=== PATIENT | male | born 1985 | race Caucasian/White ===

== ENCOUNTER 2022-05-09 06:50 | Emergency (ER) | payer BC, SELFPAY ==
[2022-05-09 07:02] VITALS: BP 131/95; PULSE 89; RESP 20; TEMP 36.5; O2SAT 98; BMI 29.5
[2022-05-09 07:45] LABS: Strep A DNA Probe* NOT DETECTED (Not Detectd)
[2022-05-09 07:57] LABS: PCR FLU A Negative PCR FLU A (Negative); PCR FLU B Negative PCR FLU B (Negative); PCR RSV Negative PCR RSV (Negative)
--- NOTE | 2022-05-09 08:00 | ED_ITS ---
HPI - General Adult General Time Seen by Provider: 08:00 Date Seen: 05/09/22 Chief complaint: Sore Throat Stated complaint: Sore throat Time Seen by Provider: 05/09/22 07:58 Source: patient and RN notes reviewed Mode of arrival: ambulatory Limitations: no limitations History of Present Illness HPI narrative: Patient is a 36-year-old male coming in with complaint of severe sore throat. Symptoms started overnight Wednesday. Patient works night shifts. He has maybe developing a little cough now but really it just severe bilateral sore throat. It is painful enough that he is having difficulty sleeping. Is managing his own secretions. Has had no travel, no definite known ill contacts. He has developed presumed fevers. He has been waking up sweating at night, feels hot at times. Has been taking ibuprofen and [id number] medicines without relief. Related Data Home Medications Medication Instructions Recorded Confirmed omeprazole 20 mg capsule,delayed 20 mg PO DAILY 05/09/22 05/09/22 release Previous Rx's Medication Instructions Recorded azithromycin 250 mg tablet See Rx Instructions PO .COMPLEX #6 05/09/22 tabs tramadol 50 mg tablet 50 mg PO Q6H PRN pain #10 tabs 05/09/22 Allergies Allergy/AdvReac Type Severity Reaction Status Date / Time No Known Drug Allergies Allergy Verified 05/09/22 07:05 Review of Systems Status of ROS: Reports: 6 or more systems reviewed and unremarkable except as noted in History and below PFSH PFS Social History Smoking Status: Former smoker What tobacco products do you use: cigarettes Smoking quit date/years: <= 15 years ago Do you use any of these nicotine containing products: None Second hand tobacco smoke exposure: No How often do you have a drink containing alcohol: monthly or less AUDIT-C Alcohol total score: 1 Non-prescribed substance use: denies use Exam Const: Vital Signs, click to edit/add: Vital Signs - 24 hr 05/09/22 07:02 Temperature 97.7 F Pulse Rate [Pulse Oximeter] 89 Respiratory Rate 20 Blood Pressure [Ri ght Upper Arm] 131/95 H Pulse Oximetry 98 Oxygen Delivery Me thod Room Air Documenting provider has reviewed patient's vital signs: yes Common normals: no apparent distress, average body habitus, oriented x3, no limitations, healthy appearing, alert and well nourished General appearance: cooperative, comfortable, well kempt and well developed Other: 36-year-old male that is alert interactive no apparent distress. Speech is normal, able to speak in complete sentences. No trismus, no muffling or hoarseness. HENMT: Common normals: normocephalic, head/scalp atraumatic, hearing grossly normal bilaterally, external ears normal, EAC's normal, TM's normal bilaterally, external nose normal, nasal mucous membranes and turbinates normal, moist oral mucous membranes, dentition normal and gingiva normal Head and scalp: normocephalic and atraumatic Nose: external nose normal and nasal mucous membranes and turbinates normal External ear: external ears normal Exter nal auditory canal: EAC's normal Tympanic membrane: TM's normal bilaterally Other: No uvula or soft palatal changes. The tonsillar bases bilaterally have some mild erythema but no swelling, no exudates, they are symmetric. There is a good oral pharyngeal airway, very patent. Eye: Common normals: PERRL, EOMs intact bilaterally, conjunctivae normal and no scleral icterus Conjunctiva: conjunctiva(e) normal Pupil: PERRL Neck & C-Spine: Common normals: full ROM, no lymphadenopathy, supple, no meningeal signs, no JVD and thyroid normal Thyroid: thyroid normal Resp: Common normals: normal respiratory effort, no retractions, no use of accessory muscles and clear to auscultation bilaterally Auscultation: clear to auscultation bilaterally Cardio: Common normals: no JVD, regular rate, regular rhythm, S1 normal heart sound, S2 normal heart sound, no gallops, no clicks, no murmurs and no rub Rate: regular rate Rhythm: regular rhythm Heart sounds: S1 normal and S2 normal Neuro: Common normals: oriented x3 Sensorium/orientation: alert Meningeal signs: no meningeal signs Psych: Appearance: well kempt Course Course Hospital Course: Nursing staff appropriately collected the viral triple swab and a strep DNA on arrival. Have reviewed with patient that should these come back negative, would recommend we proceed with a CBC to rule out bacterial pharyngitis that is non streptococcal. He is in agreement with the plan. Will be back with him once we have labs to discuss further plan. Clinically does not need a CT, there is no evidence of any peritonsillar abscess at this time. Reevaluation(s) Reevaluation #1: Reviewed with patient negative swabs, will await CBC but likely to go ahead and give antibiotics. Can give small amount tramadol for pain. Time: 08:30 Vital Signs Vital signs: Initial Vital Signs Temperature 97.7 F 05/09/22 07:02 Temperature Source Temporal Artery Scan 05/09/22 07:02 Pulse Rate 89 05/09/22 07:02 Respiratory Rate 20 05/09/22 07:02 Blood Pressure 131/95 H 05/09/22 07:02 Blood Pressure Mean 107 05/09/22 07:02 Blood Pressure Position Sitting 05/09/22 07:02 Pulse Oximetry 98 05/09/22 07:02 Oxygen Delivery Method 05/09/22 07:02 Vital Signs Temperature 97.7 F 05/09/22 07:02 Pulse Rate 89 05/09/22 07:02 Respiratory Rate 20 05/09/22 07:02 Blood Pressure 131/95 H 05/09/22 07:02 Pulse Oximetry 98 05/09/22 07:02 Oxygen Delivery Method 05/09/22 07:02 Temperature 97.7 F 05/09/22 07:02 Pulse Rate 89 05/09/22 07:02 Respiratory Rate 20 05/09/22 07:02 Blood Pressure 131/95 H 05/09/22 07:02 Pulse Oximetry 98 05/09/22 07:02 Oxygen Delivery Method 05/09/22 07:02 Medical Decision Making Lab Data Lab results reviewed: Yes I reviewed the patient's lab results Labs: Lab Results 05/09/22 05/09/22 05/09/22 Range/Units 07:09 07:09 08:20 WBC 8.47 (4.50-11.00) K/uL RBC 5.00 (4.30-5.90) m/uL Hgb 14.3 (13.5-17.5) gm/dL Hct 42.6 (37.0-53.0) % MCV 85 (80-100) fL MCH 29 (26-34) pg MCHC 34 (32-36) gm/dL RDW Coeff of Tiffany 13.0 (11.5-15.5) % Plt Count 206 (140-440) K/uL Neut % (Auto) 67.6 (42.0-72.0) % Lymph % (Auto) 20.3 (20-44) % [place] % (Auto) 10.5 (0.0-11.0) % Eos % (Auto) 1.3 (0.0-7.0) % Baso % (Auto) 0.2 (0.0-3.0) % Neut # (Auto) 5.72 (1.7-7.0) K/uL Lymph # (Auto) 1.72 (0.90-2.90) K/uL [place] # (Auto) 0.90 (0.00-0.90) K/UL Eos # (Auto) 0.11 (0.00-0.50) K/uL Baso # (Auto) 0.02 (0.00-0.30) K/uL SARS-CoV-2 (PCR) Negative SARS-CoV-2 (Negative) Influenza Type A (PCR) Negative PCR FLU A (Negative) Influenza Type B (PCR) Negative PCR FLU B (Negative) RSV (PCR) Negative PCR RSV (Negative) Group A Strep DNA NOT DETECTED (Not Detectd) Critical Care Time Critical Care Time Critical Care Time: No Discharge Plan Discharge Clinical Impression: Acute bacterial pharyngitis Condition: Stable Instructions: Pharyngitis (ED) Additional Instructions: Start antibiotics and take as prescribed. Have written for small amount of tramadol which is considered narcotic pain medicine. No driving or operating machinery. Do recommend continuing with alternating Tylenol and ibuprofen per bottle directions for further pain management. If you are not improving in the next 24-48 hours, or worsening at any point, having increased difficulty swallowing or if 1 side of your throat is be coming significantly more painful, do recommend re-evaluation. Activity Level: Activity as Tolerated Discharge Diet: Regular Prescriptions: New azithromycin 250 mg tablet See Rx Instructions .ROUTE .COMPLEX Qty: 6 0RF Rx Instructions: For 250 mg dose pack: take 500 mg today (day 1), then 250 mg for 4 days (days 2-5) tramadol 50 mg tablet 50 mg PO Q6H PRN (Reason: pain) Qty: 10 0RF No Action omeprazole 20 mg capsule,delayed release(DR/EC) 20 mg PO DAILY Follow Up/Referrals: Provider,Not a Local [Primary Care Provider] - Stand Alone [facility]: [facility]
[2022-05-09 08:03] LABS: SARS PCR* Negative SARS-CoV-2 (Negative)
[2022-05-09 08:27] LABS: Basophils Absolute Auto 0.02 K/uL (0.00-0.30); Basophils Percent Auto 0.2 % (0.0-3.0); Eosinophils Absolute Auto 0.11 K/uL (0.00-0.50); Eosinophils Percent Auto 1.3 % (0.0-7.0); Hematocrit 42.6 % (37.0-53.0); Hemoglobin* 14.3 gm/dL (13.5-17.5); Immature Granulocytes Abs Auto 0.01 K/uL (0.00-0.30); Immature Granulocytes Pct Auto 0.1 %; Lymphocytes Absolute Auto 1.72 K/uL (0.90-2.90); Lymphocytes Percent Auto 20.3 % (20-44); Mean Corpuscular HGB Conc 34 gm/dL (32-36); Mean Corpuscular Hemoglobin 29 pg (26-34); Mean Corpuscular Volume 85 fL (80-100); Monocytes Percent Auto 10.5 % (0.0-11.0); Neutrophils Absolute Auto 5.72 K/uL (1.7-7.0); Neutrophils Percent Auto 67.6 % (42.0-72.0); Platelet Count* 206 K/uL (140-440); White Blood Count* 8.47 K/uL (4.50-11.00)
[2022-05-09 08:30] LABS: Slide Review Reflex No
[2022-05-09 08:47] LABS: C Reactive Protein* 3.2 mg/dL (0.5-1.0)
== END 2022-05-09 08:56 | disposition home or self-care (01) ==
PROVIDERS: Emergency Provider Family Medicine
DX: J02.9 Acute pharyngitis, unspecified (principal)
CPT/HCPCS: 36415; 85025; 86140; 87502; 87634; 87635; 87651; 99283; 99284